=== PATIENT | male | born 1985 | race Caucasian/White ===

== ENCOUNTER 2019-03-18 23:43 | Emergency (ER) | payer SELFPAY ==
[~2019-03-18] VITALS: Ht 180.3 cm; Wt 102.1 kg
[2019-03-18 23:54] VITALS: BP 140/98
--- NOTE | 2019-03-18 23:54 | NUR ---
to bed # 07 ambulatory
[2019-03-19] MEDS ORDERED: KETOROLAC 60 MG/2 ML VIAL IM ONE
--- NOTE | 2019-03-19 00:15 | NUR ---
33 Y/O MALE PRESENTS TO ED, C/O LOWER BACK PAIN X1 DAY. PT STATES PAIN IS 10/10, DOES NOT RADIATE. STATES BEING AT WORK DURING BREAK, PT WAS LAYING DOWN AND STOOD UP AND FELT PAIN. PT DENIES ANY TRAUMA; NO DEFORMITY NOTED. PT DENIES ANY TINGLING SENSATION ON EXTREMITIES; ABLE TO AMBULATE WITH SLOW STEADY GAIT. PT DENIES TAKING ANY MEDICATIONS TO HELP ALLEVIATE PAIN. PT VSS. ERMD AWARE. WILL CONTINUE TO MONITOR.
--- NOTE | 2019-03-19 00:40 | NUR ---
DR. ALCANTARA EVALUATING PT AT BEDSIDE
[2019-03-19] MEDS ORDERED: MORPHINE SULFATE 4 MG/ML SYR IM ONE (00:45)
[2019-03-19 01:15] VITALS: BP 141/75
--- NOTE | 2019-03-19 01:15 | NUR ---
PT DISCHARGED WITH PAPERWORK. RX VALIUM, MOTRIN. EDUCATED PT REGARDING MEDICATIONS AND S/E. EDUCATED PT REGARDING D/C DIAGNOSIS AND INSTRUCTIONS. PT VERBALIZED UNDERSTANDING OF TEACHING. TOLD PT TO FOLLOW UP WITH PCP AND WHEN TO RETURN TO ED. PT VSS. ALL QUESTIONS ANSWERED.
== END 2019-03-19 01:15 | disposition home or self-care (01) ==
LOC: MED 23:43
DX: M54.5 Low back pain (principal)
CPT/HCPCS: 81002; 96372; 99283; J1885; J2270